=== PATIENT | male | born 1955 | race Caucasian/White ===

== ENCOUNTER 2024-06-01 10:28 | Emergency (ER) | payer MEDICARE ==
--- NOTE | 2024-06-01 10:47 | ED ---
Abdominal Pain HPI - General Source: patient, RN notes reviewed <Marley Ibarra - Last Filed: 06/01/24 10:44> <Jose Dunn - Last Filed: 06/01/24 14:22> - General Stated Complaint: constipation/Vomitting/abd pain Time Seen by Provider: 06/01/24 10:45 - History of Present Illness Initial Comments: 39-year-old male presents with complaint of constipation, nausea and vomiting. Patient states that he has been difficulties passing bowel movements over the past week. States he still passing gas. This morning he began experiencing nausea and vomiting. Denies fevers, chills. Patient is experiencing right lower quadrant and right flank pain that started this morning. Denies previous surgical abdominal history. last bowel movement was 2 days ago. (Marley Ibarra) This is a 39-year-old male who presents to the emergency department with right- sided flank pain. Patient states he has been constipated for the last 2 days. He has had a history of kidney stones but this does not feel quite as bad. Patient states he has not had any vomiting but had an episode of mild nausea. Patient denies any diarrhea. Patient has chest pain difficulty breathing shor tness of breath. (Jose Dunn) - Related Data Previous Rx's Medication Instructions Recorded Ketorolac [Toradol] 10 mg PO Q8HR #15 tab 06/01/24 Tamsulosin [Flomax] 0.4 mg PO DAILY #10 cap 06/01/24 Allergies Allergy/AdvReac Type Severity Reaction Status Date / Time ethinyl estradiol Allergy Unknown Verified 06/01/24 10:50 [From [facility] (91)] levonorgestrel Allergy Unknown Verified 06/01/24 10:50 [From [facility] (91)] Review of Systems ROS Other: All systems not noted in ROS Statement are negative. <Marley Ibarra - Last Filed: 06/01/24 10:44> ROS Other: All systems not noted in ROS Statement are negative. <Jose Dunn - Last Filed: 06/01/24 14:22> ROS Statement: Those systems with pertinent positive or pertinent negative responses have been documented in the HPI. General Exam <Marley Ibarra - Last Filed: 06/01/24 10:44> <Jose Dunn - Last Filed: 06/01/24 14:22> - General Exam Comments Initial Comments: Visual Physical Exam Vital signs reviewed General: Well-appearing, nontoxic, no acute distress. Head: Normocephalic, atraumatic Eyes: PERRLA, EOMI ENT: Airway patent Chest: Nonlabored breathing Skin: No visual rash, normal skin tone Neuro: Alert and oriented 3 Musculoskeletal: No gross abnormalities (Marley Ibarra) GENERAL: Patient is well-developed and well-nourished. Patient is nontoxic and well-hydrated and is in moderate distress. ENT: Neck is soft and supple. No significant lymphadenopathy is noted. Oropharynx is clear. Moist mucous membranes. Neck has full range of motion without eliciting any pain. EYES: The sclera were anicteric and conjunctiva were pink and moist. Extraocular movements were intact and pupils were equal round and reactive to light. Eyelids were unremarkable. PULMONARY: Unlabored respirations. Good breath sounds bilaterally. No audible rales rhonchi or wheezing was noted. CARDIOVASCULAR: There is a regular rate and rhythm without any murmurs gallops or rubs. ABDOMEN: Soft and nontender with normal bowel sounds. No palpable organomegaly was noted. There is no palpable pulsatile mass. SKIN: Skin is clear with no lesions or rashes and otherwise unremarkable. NEUROLOGIC: Patient is alert and oriented x3. Cranial nerves II through XII are grossly intact. Motor and sensory are also intact. Normal speech, volume and content. Symmetrical smile. MUSCULOSKELETAL: Normal extremities with adequate strength and full range of motion. LYMPHATICS: No significant lymphadenopathy is noted PSYCHIATRIC: Normal psychiatric evaluation. (Jose Dunn) Course Vital Signs 06/01/24 06/01/24 06/01/24 10:46 12:33 12:37 Temperature 97.9 F 97.8 F Pulse Rate 61 71 68 Respiratory 20 16 16 Rate Blood Pressure 187/93 200/103 201/101 O2 Sat by Pulse 100 98 98 Oximetry 06/01/24 12:44 Temperature 97.5 F L Pulse Rate 74 Respiratory 16 Rate Blood Pressure 186/97 O2 Sat by Pulse 99 Oximetry Medical Decision Making <Marley Ibarra - Last Filed: 06/01/24 10:44> - Lab Data Result diagrams: 06/01/24 11:01 06/01/24 11:01 <Jose Dunn - Last Filed: 06/01/24 14:22> - Medical Decision Making I completed the quick note portion of this chart signed Marley Ibarra PA-C (Marley Ibarra) EKG is interpreted by myself. EKG shows a sinus rhythm at 72 bpm ME interval is 164 QRS is 81 QT interval 366 QTc is 391. Patient's EKG shows no ST segment elevation or depression Was pt. sent in by a medical professional or institution ([facility], [facility], urgent care, hospital, or fdc...) When possible be specific @ -No Did you speak to anyone other than the patient for history (EMS, parent, family, police, friend...)? What history was obtained from this source @ -No Did you review nursing and triage notes (agree or disagree)? Why? @ -I reviewed and agree with nursing and triage notes Were old charts reviewed (outside hosp., previous admission, EMS record, old EKG, old radiological studies, urgent care reports/EKG's, fdc records)? Report findings @ -No old charts were reviewed Differential Diagnosis? @ -Differential Abdominal Pain Men: Appendicitis, cholecystitis, diverticulosis, ischemic bowel, pancreatitis, hepatitis, UTI, gastroenteritis, AAA, incarcerated hernia, bowel obstruction, constipation, inflammatory bowel, hepatitis, peptic ulcer disease, splenic infarction, perforated viscus, testicular torsion, this is not meant to be an all-inclusive list EKG interpreted by me (3pts min.). @ -As above X-rays interpreted by me (1pt min.). @ -None CT interpreted by me (1pt min.). @ -CT abdomen pelvis shows a 4 mm stone in the right ureter in the mid ureter region. Patient also has hydroureter. U/S interpreted by me (1pt. min.). @ -None done What testing was considered but not performed or refused? (CT, X-rays, U/S, labs)? Why? @ -None What meds were considered but not given or refused? Why? @ -None Did you discuss the management of the patient with other professionals (professionals i.e. [facility], [facility], lab, RT, psych nurse, social media marketer, putty and patch worker, t eacher, environmental compliance officer, business case analyst)? Give summary @ -No Was smoking cessation discussed for >3mins.? @ -No Was critical care preformed (if so, how long)? @ -No Were there social determinants of health that impacted care today? How? (Homelessness, low income, unemployed, alcoholism, drug addiction, transportation, low edu. Level, literacy, decrease access to med. care, prison, rehab)? @ -No Was there de-escalation of care discussed even if they declined (Discuss DNR or withdrawal of care, Hospice)? DNR status @ -No What co-morbidities impacted this encounter? (DM, HTN, Smoking, COPD, CAD, Cance r, CVA, ARF, Chemo, Hep., AIDS, mental health diagnosis, sleep apnea, morbid obesity)? @ -None Was patient admitted / discharged? Hospital course, mention meds given and route, prescriptions, significant lab abnormalities, going to OR and other pertinent info. @ -Patient was given Toradol and Dilaudid for pain. Patient was also given a liter of IV fluids. Patient's CAT scan showed a 4 mm stone. Patient had great pain relief. Patient will be discharged home to follow-up with urology Undiagnosed new problem with uncertain prognosis? @ -No Drug Therapy requiring intensive monitoring for toxicity (Heparin, Nitro, Insulin, Cardizem)? @ -No Were any procedures done? @ -No Diagnosis/symptom? @ -Kidney stone Acute, or Chronic, or Acute on Chronic? @ -Acute Uncomplicated (without systemic symptoms) or Complicated (systemic symptoms)? @ -Complicated Side effects of treatment? @ -No Exacerbation, Progression, or Severe Exacerbation? @ -No Poses a threat to life or bodily function? How? (Chest pain, [place], [place], pneumonia, PE, COPD, DKA, ARF, appy, cholecystitis, CVA, Diverticulitis, Homicidal, Suicidal, threat to staff... and all critical care pts) @ -No (Jose Dunn) - Lab Data Lab Results 06/01/24 06/01/24 06/01/24 Range/Units 11:01 11: 11: WBC 8.3 (3.8-10.6) k/uL RBC 5.08 (4.30-5.90) m/uL Hgb 16.4 (13.0-17.5) gm/dL Hct 48.1 (39.0-53.0) % MCV 94.7 (80.0-100.0) fL MCH 32.3 (25.0-35.0) pg MCHC 34.1 (31.0-37.0) g/dL RDW 13.4 (11.5-15.5) % Plt Count 233 (150-450) k/uL MPV 8.7 Neutrophils % 82 % Lymphocytes % 11 % Monocytes % 5 % Eosinophils % 1 % Basophils % 0 % Neutrophils # 6.8 (1.3-7.7) k/uL Lymphocytes # 0.9 L (1.0-4.8) k/uL Monocytes # 0.4 (0-1.0) k/uL Eosinophils # 0.1 (0-0.7) k/uL Basophils # 0.0 (0-0.2) k/uL Sodium 137 (137-145) mmol/L Potassium 5.2 H (3.5-5.1) mmol/L Chloride 103 (98-107) mmol/L Carbon Dioxide 26 (22-30) mmol/L Anion Gap 8 mmol/L BUN 21 H (9-20) mg/dL Creatinine 0.85 (0.66-1.25) mg/dL Est GFR (CKD-EPI)AfAm >90 (>60 ml/min/1.73 sqM) Est GFR (CKD-EPI)NonAf 89 (>60 ml/min/1.73 sqM) Glucose 133 H (74-99) mg/dL Plasma Lactic Acid Dejon 1.9 (0.7-2.0) mmol/L Calcium 10.4 H (8.4-10.2) mg/dL Total Bilirubin 1.8 H (0.2-1.3) mg/dL AST 44 (17-59) U/L ALT 44 (4-49) U/L Alkaline Phosphatase 82 (38-126) U/L Total Protein 8.0 (6.3-8.2) g/dL Albumin 5.1 H (3.5-5.0) g/dL Amylase 80 (30-110) U/L Lipase 99 (23-300) U/L Disposition <Marley Ibarra - Last Filed: 06/01/24 10:44> Is patient prescribed a controlled substance at d/c from ED?: No Time of Disposition: 14:21 <Jose Dunn - Last Filed: 06/01/24 14:22> Clinical Impression: Kidney stone on right side Disposition: HOME SELF-CARE Condition: Good Instructions (If sedation given, give patient instructions): Kidney Stones (ED) Prescriptions: Tamsulosin [Flomax] 0.4 mg PO DAILY #10 cap Ketorolac [Toradol] 10 mg PO Q8HR #15 tab Referrals: Juan A Bhakta [Primary Care Provider] - 1-2 days
--- NOTE | 2024-06-01 11:31 | XR ---
EXAMINATION TYPE: XR KUB DATE OF EXAM: 06/01/2024 11:08 AM CLINICAL INDICATION:Male, 69 years old with history of ab pain, constipation, N/V; [facility] COMPARISON: None. TECHNIQUE: One radiographic view of the abdomen was obtained. FINDINGS: The bowel gas pattern is nonspecific without dilated loops of small or large bowel. . Fecal material and gas are demonstrated throughout the colon and rectum. There is no evidence for organomegaly or pneumoperitoneum. The osseous structures are intact. Bilat eral renal calculi measuring up to 8 mm on the right and 15 mm on the left. IMPRESSION: 1. Bilateral renal calculi. 2. Nonspecific bowel gas pattern without radiographic evidence for acute process.
[2024-06-01] MEDS: KETOROLAC 15 MG/ML 1 ML VIAL IVP STA (12:27)
[2024-06-01] MEDS: HYDROmorphone 0.5 MG/0.5 ML SYRINGE IVP STA (12:28)
[2024-06-01] MEDS: SODIUM CHLORIDE 0.9% 1,000 ML IV ONE (12:28)
[2024-06-01 12:31] LABS: Basophils % (A) 0 %; Eosinophils # (A) 0.1 k/uL (0-0.7); Eosinophils % (A) 1 %; HCT 48.1 % (39.0-53.0); HGB 16.4 gm/dL (13.0-17.5); Lymphocytes # (A) 0.9 k/uL (1.0-4.8); Lymphocytes % (A) 11 %; MCH 32.3 pg (25.0-35.0); MCHC 34.1 g/dL (31.0-37.0); MCV 94.7 fL (80.0-100.0); Mean Platelet Volume 8.7; Monocytes # (A) 0.4 k/uL (0-1.0); Monocytes % (A) 5 %; Neutrophils # (A) 6.8 k/uL (1.3-7.7); Neutrophils % (A) 82 %; Platelet Count 233 k/uL (150-450); RBC 5.08 m/uL (4.30-5.90); RDW 13.4 % (11.5-15.5); WBC 8.3 k/uL (3.8-10.6)
[2024-06-01 12:37] VITALS: RESP 16
[2024-06-01 12:41] LABS: ALT 44 U/L (4-49); AST 44 U/L (17-59); African American GFR (CKD) >90 (>60 ml/min/1.73 sqM); Albumin 5.1 g/dL (3.5-5.0); Alkaline Phosphatase 82 U/L (38-126); Amylase 80 U/L (30-110); Anion Gap 8 mmol/L; Blood Urea Nitrogen 21 mg/dL (9-20); Calcium 10.4 mg/dL (8.4-10.2); Carbon Dioxide 26 mmol/L (22-30); Chloride 103 mmol/L (98-107); Glucose 133 mg/dL (74-99); Lipase 99 U/L (23-300); Non-African American GFR(CKD) 89 (>60 ml/min/1.73 sqM); Potassium 5.2 mmol/L (3.5-5.1); Sodium 137 mmol/L (137-145); Total Bilirubin 1.8 mg/dL (0.2-1.3)
--- NOTE | 2024-06-01 13:52 | CT ---
EXAMINATION TYPE: CT abdomen pelvis wo con DATE OF EXAM: 06/01/2024 COMPARISON: None HISTORY: 69-year-old male Flank pain RT side, vomiting, constipation CT DLP: 606.7 mGycm. Automated exposure control for dose reduction was used. TECHNIQUE: Contiguous axial scanning of the abdomen and pelvis without IV contrast. Coronal and sagit kevin reconstructions performed. FINDINGS: Heart upper limits of normal in size. Some patchy opacity basilar lateral right middle lobe, probably atelectasis. Some septal lines in the lung bases, probably fine interstitial fibrosis. There may be some eccentric mural thickening along the anterior gastric body, axial image 25. Possibl e gastritis. If symptomatic, consider direct visualization to exclude a mucosal lesion. Small hiatal hernia. Calcified granuloma within the right liver lobe. Otherwise, noncontrast appearance of the liver, gall bladder, adrenal glands, spleen, and pancreas within normal limits. 3 nonobstructive left renal stones, largest measuring 1 cm. This largest stone is centrally located, possibly within a major calyceal system. No hydronephrosis here. Approximately 6 nonobstructive right renal stones measuring up to 8 mm. However, there is mild right- sided hydronephrosis and proximal hydroureter secondary to ar 4 mm stone at the upper right ureter. A symmetric perinephric edema on the right likely reactive to the obstruction. No dilated small bowel, free fluid, or free air. No mesenteric or retroperitoneal lymphadenopathy. Mild to moderate stool. Generalized colonic diverticulosis, greatest in the sigmoid colon. Sigmoid co ethan mildly redundant. No pericolonic inflammatory change. Bladder is urine distended. Prostate gland mildly enlarged at 4.8 cm wide. Pelvic phleboliths. No abn ormal fluid collection in the pelvis or pelvic lymphadenopathy. Bones: Osteitis pubis. Mild degenerative change SI joints. Hypertrophic facet arthropathy and moderat e degenerative disc disease in the lumbar spine. Degenerative grade 1 spondylolisthesis L3-L4 and L4- L5. IMPRESSION: 1. A 4 mm stone in the upper right ureter with mild obstructive uropathy. 2. Additional bilateral nephrolithiasis measuring up to 8 mm on the right and 1 cm on the left. This largest 1 cm stone on the left is within the renal collecting system and could potentially pass in t he near future. 3. Some eccentric mural thickening along the anterior gastric body. Correlate for any symptoms of ga stritis. Direct visualization can be considered especially if symptomatic and to exclude underlying n eoplasm. 4. Colonic diverticulosis, greatest in the sigmoid colon without evidence for acute diverticulitis.
[2024-06-01] MEDS: ACET/COD 300 MG/30 MG STARTER PACK 6 TAB BTL PO STA (14:44)
[2024-06-01 14:56] VITALS: BP 147/93; PULSE 70; TEMP 98.1
== END 2024-06-01 14:55 | disposition home or self-care (01) ==
LOC: EC 10:28
DX: K57.30 Diverticulosis of large intestine without perforation or abscess without bleeding (principal); N20.2 Calculus of kidney with calculus of ureter
CPT/HCPCS: 80053; 82150; 83605; 83690; 85025; 74018; 74176; 99285; 96374; 96375; 96361 ×2; J1885; J1170; 36415